=== PATIENT | male | born 1975 | race Caucasian/White ===

== ENCOUNTER 2019-07-23 13:12 | Outpatient (CLI) | payer MEDICAID, SELFPAY ==
--- NOTE | 2019-07-23 13:25 | USCV_ITS ---
Kevin Jean-Baptiste Age: 44 Gender: M : 1975 Exam Date: 07/23/2019 13:37 Ordering Phys: Lili Alexandre PEDIATRIC SOCIAL WORKER PEDIATRIC SOCIAL WORKER Technologist: Aisha Rosen Exam Location: [facility] – [place] Indication: LEFT LEG PAIN HISTORY: Lower extremity pain. PROCEDURES: Venous duplex imaging was performed in only the left lower extremity. The following venous structures were evaluated: common femoral vein, profunda vein, proximal portion of the greater saphenous vein, superficial femoral vein, and the popliteal vein. In addition, the posterior tibial and peroneal trunk were evaluated. Serial compression, augmentation maneuvers, and spectral Doppler flow evaluation were performed. FINDINGS: Normal 2-D Doppler and augmentation and compressibility throughout the lower extremity venous structures. Additional imaging through the proximal calf veins also reveals no thrombus. Limited evaluation of the greater saphenous vein is patent with no thrombus.. CONCLUSIONS Negative left lower extremity venous Doppler ultrasound. Dr. Candace Macedo MD (Electronically Signed) Final Date: 23 July 2019 13:58 S
== END 2019-07-23 13:13 | disposition home or self-care (01) ==
LOC: RAD 13:18
PROVIDERS: Family Provider Registered Nurse; PCP Registered Nurse; Visit Provider Registered Nurse
DX: M79.605 Pain in left leg (principal)
CPT/HCPCS: 93971

== ENCOUNTER → 2019-08-13 13:40 | Outpatient (BNVA) | payer MEDICAID, SELFPAY | PROVIDERS: Family Provider Registered Nurse; PCP Registered Nurse; Visit Provider Nurse Practitioner | DX: F31.81 Bipolar II disorder (principal); F60.3 Borderline personality disorder; F41.1 Generalized anxiety disorder; G40.909 Epilepsy, unspecified, not intractable, without status epilepticus; R55 Syncope and collapse | CPT/HCPCS: 99213; 99214 ==

== ENCOUNTER → 2019-08-21 13:55 | Outpatient (BNVA) | payer MEDICAID, SELFPAY | PROVIDERS: Family Provider Registered Nurse; PCP Registered Nurse; Visit Provider Social Worker Clinical | DX: F60.3 Borderline personality disorder (principal); F31.81 Bipolar II disorder | CPT/HCPCS: 90834 ==

== ENCOUNTER → 2019-08-28 08:34 | Outpatient (BNVA) | payer MEDICAID, SELFPAY | PROVIDERS: Family Provider Registered Nurse; PCP Registered Nurse; Referring Provider Registered Nurse; Visit Provider Specialist | DX: M25.562 Pain in left knee (principal) | CPT/HCPCS: 73560; 73565 ==

== ENCOUNTER → 2019-09-12 11:40 | Outpatient (BNVA) | payer MEDICAID, SELFPAY | PROVIDERS: Family Provider Registered Nurse; PCP Registered Nurse; Visit Provider Social Worker Clinical | DX: F60.3 Borderline personality disorder (principal); F31.81 Bipolar II disorder | CPT/HCPCS: 90834 ==

== ENCOUNTER 2019-09-13 13:41 | Outpatient (CLI) | payer MEDICAID, SELFPAY ==
--- NOTE | 2019-09-13 13:45 | MR_ITS ---
WS: [id number] MRI LEFT KNEE NONCONTRAST TECHNIQUE: Axial PD, coronal PD fat sat, coronal PD, sagittal PD, and sagittal PD fat-sat images obta ined. CLINICAL INFORMATION: pain COMPARISON: None. FINDINGS: Distal quadriceps and patella tendons are intact. Hypertrophic patella. Normal anterior cruciate liga ment ligament. Normal PCL. Mild chronic thinning of the medial and lateral meniscus. No acute appeari ng meniscal tears. Medial and lateral collateral ligaments are intact. 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 Moderate chondromalacia involving the medial joint compartment. Mild chondr omalacia lateral joint compartment. Normal popliteal fossa. MR/MR knee LT wo con* [id number] IMPRESSION: 1. Normal anterior and posterior cruciate ligaments. 2. Mild chronic thinning of the medial and lateral meniscus. No acute appearin g meniscal tears. 3. Moderate chondromalacia patella worse involving the lateral patella facet. No subchondral edema. 4. Moderate chondromalacia involving the medial joint compartment with joint s pace narrowing. No subchondral edema. 5. No other significant findings.
== END 2019-09-13 13:42 | disposition home or self-care (01) ==
LOC: RADSHAW 13:48
PROVIDERS: Family Provider Registered Nurse; PCP Registered Nurse; Visit Provider Specialist
DX: M22.42 Chondromalacia patellae, left knee (principal); M25.562 Pain in left knee
CPT/HCPCS: 73721

== ENCOUNTER → 2019-10-10 13:16 | Outpatient (BNVA) | payer MEDICAID, SELFPAY | PROVIDERS: Family Provider Registered Nurse; PCP Registered Nurse; Visit Provider Social Worker Clinical | DX: F60.3 Borderline personality disorder (principal); F31.81 Bipolar II disorder; F41.1 Generalized anxiety disorder | CPT/HCPCS: 90832 ==

== ENCOUNTER → 2019-11-05 08:22 | Outpatient (BNVA) | payer MEDICAID, SELFPAY | PROVIDERS: Family Provider Registered Nurse; PCP Registered Nurse; Visit Provider Nurse Practitioner | DX: F31.81 Bipolar II disorder (principal); F41.1 Generalized anxiety disorder; F60.3 Borderline personality disorder | CPT/HCPCS: 99213 ==